=== PATIENT | male | born 1975 | race Two or more races ===

== ENCOUNTER 2022-01-14 06:21 | Day surgery (SDC) | payer BC ==
[2022-01-14] MEDS ORDERED: Fentanyl 100 MCG/2 ML VIAL ONE (06:51)
[2022-01-14] MEDS ORDERED: Ondansetron PF 4 MG/2 ML Vial ONE ×2 (06:53→09:19)
[2022-01-14] MEDS ORDERED: Ketorolac Tromethamine 30 MG/ML VIAL ONE (08:17)
[2022-01-14] MEDS ORDERED: Midazolam HCl 2 mg/2 ml Vial ONE (09:03)
[2022-01-14] MEDS ORDERED: fentaNYL Citrate/PF 100 MCG/2 ML SYRINGE ONE (09:03)
[2022-01-14] MEDS ORDERED: HYDROmorphone 0.5 MG/0.5 ML SYRINGE ONE (09:04)
[2022-01-14] MEDS ORDERED: Famotidine/PF 20 mg/2ml Vial ONE (09:04)
[2022-01-14] MEDS ORDERED: Bupivacaine PF 0.5% 30 ML VIAL ONE (09:05)
[2022-01-14] MEDS ORDERED: Lidocaine 1% w/Epinephrine 1:100K 20 ML VIAL ONE (09:05)
[2022-01-14] MEDS ORDERED: Succinylcholine 200 MG/10 ml SYRINGE FS ONE (09:19)
[2022-01-14] MEDS ORDERED: Dexamethasone 20 MG/5 ML VIAL ONE (09:19)
[2022-01-14] MEDS ORDERED: Glycopyrrolate 0.2 MG/ML 5 ML SYRINGE ONE (09:19)
[2022-01-14] MEDS ORDERED: Rocuronium Bromide 10 MG/ML (10ML VIAL) ONE (09:19)
[2022-01-14] MEDS ORDERED: Lidocaine 1% PF 5 ML VIAL ONE (09:19)
[2022-01-14] MEDS ORDERED: Metoclopramide HCl 10 MG/2 ML VIAL ONE (09:19)
[2022-01-14] MEDS ORDERED: PROPOFOL 200 MG/20 ML VIAL ONE (09:19)
[2022-01-14] MEDS ORDERED: Piperacillin/Tazobactam 3.375 GM VIAL ONE (10:37)
[2022-01-14] MEDS ORDERED: HYDROcodone/Acetaminophen 5/325 mg Tablet ONE (12:01)
== END 2022-01-14 12:49 | disposition home or self-care (01) ==
LOC: SDC 06:21
PROVIDERS: ATTEND Specialist
PROC: 0DTJ4ZZ Resection of Appendix, Percutaneous Endoscopic Approach (ICD-10-PCS; principal; 2022-01-14)
DX: K35.80 Unspecified acute appendicitis (principal); K38.8 Other specified diseases of appendix; F17.210 Nicotine dependence, cigarettes, uncomplicated
CPT/HCPCS: 88304; A4649; J1100; J1170; J1885; J2250; J2405; J2543; J2704; J2765; J3010; S0020; S0028